=== PATIENT | male | born 1950 | race Caucasian/White ===

== ENCOUNTER 2017-11-16 04:49 | Emergency (ER) | payer SELFPAY ==
[~2017-11-16] VITALS: Ht 167.6 cm; Wt 68.0 kg
[2017-11-16] MEDS ORDERED: KETOROLAC 60MG/2ML VIAL IM ONE (06:00)
[2017-11-16] MEDS ORDERED: TETANUS, DIPHTHERIA, PERTUSSIS VAC/PF 0.5ML (>7YR OLD) IM ONE (06:00)
[2017-11-16] MEDS ORDERED: SODIUM CHLORIDE 0.9% 1,000 ML IV ONE ×2 (06:35→07:03)
[2017-11-16 07:10] LABS: HEMATOCRIT. 35.4 % (42.0-52.0); HEMOGLOBIN. 11.7 g/dL (14.0-18.0); MEAN CORPUSCULAR VOLUME 93.9 fL (80.0-94.0); MEAN PLATELET VOLUME 8.7 fl (7.4-10.4); PLATELET 148 x1000/uL (130-400); RED BLOOD CELL COUNT 3.77 mill/uL (4.7-6.1); RED CELL DISTRIBUTION WIDTH 13.6 % (11.6-14.6)
[2017-11-16 07:19] LABS: CHLORIDE 107 mEq/L (98-107)
[2017-11-16 07:25] LABS: CARBON DIOXIDE 27 mEq/L (21-32)
[2017-11-16 07:30] LABS: INR 1.3
[2017-11-16 07:45] LABS: PLATELET ESTIMATE NORMAL
[2017-11-16 09:11] VITALS: BP 132/82
== END 2017-11-16 09:14 | disposition short-term general hospital (02) ==
LOC: ER 04:49
DX: S06.6X9A Traumatic subarachnoid hemorrhage with loss of consciousness of unspecified duration, initial encounter (principal); S06.5X9A Traumatic subdural hemorrhage with loss of consciousness of unspecified duration, initial encounter; S62.92XA Unspecified fracture of left hand, initial encounter for closed fracture; S22.42XA Multiple fractures of ribs, left side, initial encounter for closed fracture; S02.82XA Fracture of other specified skull and facial bones, left side, initial encounter for closed fracture; I10 Essential (primary) hypertension; D64.9 Anemia, unspecified; I95.9 Hypotension, unspecified; Y08.89XA Assault by other specified means, initial encounter; Y93.89 Activity, other specified; Y92.89 Other specified places as the place of occurrence of the external cause; Y99.8 Other external cause status; Z90.49 Acquired absence of other specified parts of digestive tract
CPT/HCPCS: 29125; 36415; 70450; 70486; 71101; 72125; 72170; 73130; 80053; 85025; 85610; 86850; 86900; 86901; 90471; 90715; 96360; 96361; 99291; J1885; J7030; Z7610